=== PATIENT | male | born 1990 | race Caucasian/White ===

== ENCOUNTER 2016-12-12 18:06 | Emergency (ER) | payer OTHER ==
[2016-12-12 18:10] VITALS: BP 142/91
[2016-12-12] MEDS ORDERED: ACETAMINOPHEN 325 MG TABLET PO ONE (19:01)
[2016-12-12] MEDS ORDERED: PSEUDOEPHEDRINE HCL 30 MG TABLET PO ONE (19:01)
--- NOTE | 2016-12-12 19:03 | ER Document Report ---
ED ENT - General Chief Complaint: Ear Pain Stated Complaint: EAR PAIN BOTH EARS Time Seen by Provider: 12/12/16 18:53 Notes: Patient is a 26-year-old male presents emergency department complaining of ear pain. Patient states that he was swimming all day today when he got out of for driving home he had sharp pain from both ears. With associated headache. Patient states that since he presented here things have resolved. Patient admits to congestion and pressure. Patient states that he does not have any pain with your movement. Denies any fever, chills, sore throat. Patient states that he does feel congested with a runny nose. TRAVEL OUTSIDE OF THE [place] IN LAST 30 DAYS: No - Related Data Allergies/Adverse Reactions: No Known Allergies Allergy (Unverified 12/12/16 18:09) Past Medical History - Social History Smoking Status: Unknown if Ever Smoked Family History: Reviewed & Not Pertinent Renal/ Medical History: Denies: Hx Peritoneal Dialysis - Immunizations Hx Diphtheria, Pertussis, Tetanus Vaccination: Yes Review of Systems - Review of Systems Constitutional: See HPI EENT: See HPI -: Yes All other systems reviewed and negative Physical Exam - Vital signs Vitals: Temp Pulse Resp BP Pulse Ox 98.6 F 58 L 16 142/91 H 97 12/12/16 18:09 12/12/16 18:09 12/12/16 18:09 12/12/16 18:09 12/12/16 18:09 - Notes Notes: PHYSICAL EXAM GENERAL: Alert, interacts well. HEAD: Normocephalic, atraumatic. EYES: Pupils equal, round, and reactive to light. Extraocular movements intact. ENT: Auditory canal without any evidence of inflammation, tenderness, swelling. Tympanic membranes intact without any evidence of bulging, retraction, perforation. Oral mucosa moist, tongue midline. Uvula midline. Airway patent. No evidence of tonsillar enlargement, peritonsillar abscess, retropharyngeal abscess. NECK: Full range of motion. Supple. Trachea midline. LUNGS: Clear to auscultation bilaterally, no wheezes, rales, or rhonchi. No respiratory distress. HEART: Regular rate and rhythm. No murmurs, gallops, or rubs. Course - Re-evaluation Re-evalutation: 12/12/16 21:45 Patient is a 26-year-old male who is hemodynamically stable, no acute distress afebrile. No evidence of otitis externa, otitis media, barotrauma resulting in tympanic membrane perforation. Hearing intact. Patient states that his symptoms have resolved. Patient educated on taking [id number] decongestants to help with sinus pressure. Patient given strict return precautions otherwise stable for discharge home and can follow-up with primary care - Vital Signs Vital signs: Temp Pulse Resp BP Pulse Ox 98.6 F 58 L 16 142/91 H 97 12/12/16 18:09 12/12/16 18:09 12/12/16 18:09 12/12/16 18:09 12/12/16 18:09 Discharge - Discharge Clinical Impression: Ear pain Condition: Good Disposition: HOME, SELF-CARE Instructions: Ear Barotrauma ([facility]) Additional Instructions: Please buy pseudophedrine [id number] to help with your congestion
== END 2016-12-12 19:16 | disposition home or self-care (01) ==
LOC: ER 18:06
DX: H92.03 Otalgia, bilateral (principal); R51 Headache; R09.89 Other specified symptoms and signs involving the circulatory and respiratory systems
CPT/HCPCS: 99282

== ENCOUNTER → 2019-11-11 | Outpatient (CLI) | payer OTHER | LOC: RT 15:24 | PROVIDERS: ATTEND Student in an Organized Health Care Education/Training Program | DX: Z13.83 Encounter for screening for respiratory disorder NEC (principal); Z77.098 Contact with and (suspected) exposure to other hazardous, chiefly nonmedicinal, chemicals | CPT/HCPCS: 94010 ==